=== PATIENT | male | born 1990 | race Two or more races ===

== ENCOUNTER 2016-07-03 21:20 | Emergency (ER) | payer BC, MEDICAID, OTHER ==
[~2016-07-03] VITALS: Ht 177.8 cm; Wt 97.8 kg
[2016-07-03 21:21] VITALS: BP 199/81
[2016-07-03] MEDS ORDERED: DIPH,PERTUSS(ACELL),TET VAC/PF 0.5 ML IM-VACC ONE ×2 (23:04→23:30)
[2016-07-03] MEDS ORDERED: LIDOCAINE 1%-EPI 1:100K, 50ML ONE (23:06)
[2016-07-03] MEDS ORDERED: LIDOCAINE 1%, 20ML ONE (23:10)
[2016-07-03] MEDS ORDERED: LIDOCAINE 1%, 20ML SQ ONE (23:30)
[2016-07-04] MEDS ORDERED: BACITRACIN ZINC OINT 500U/GM, 0.9 GM ONE (00:25)
== END 2016-07-04 00:47 | disposition home or self-care (01) ==
LOC: ED 07-04 00:41
DX: S61.213A Laceration without foreign body of left middle finger without damage to nail, initial encounter (principal); X58.XXXA Exposure to other specified factors, initial encounter; Y93.89 Activity, other specified; Y99.8 Other external cause status; Y92.009 Unspecified place in unspecified non-institutional (private) residence as the place of occurrence of the external cause
CPT/HCPCS: 12002; 90471; 90715

== ENCOUNTER 2019-05-17 13:40 | Emergency (ER) | payer OTHER ==
[~2019-05-17] VITALS: Ht 177.8 cm; Wt 77.0 kg
[2019-05-17] MEDS ORDERED: ONDANSETRON 2MG/ML, 2ML IVPush ONE (14:00)
[2019-05-17] MEDS ORDERED: MORPHINE SULFATE 4 MG/ML, 1ML IVPush PRN (14:00)
[2019-05-17] MEDS ORDERED: SODIUM CHLORIDE FLUSH 10ML SYR IVF ONE (14:00)
[2019-05-17 15:04] LABS: BASOPHILS % (AUTO) 0 % (0-1); EOSINOPHILS # (AUTO) 0.07 x10^3/uL (0-0.4); EOSINOPHILS % (AUTO) 1 % (1-7); LYMPHOCYTES # (AUTO) 0.82 x10^3/uL (1-3.4); LYMPHOCYTES % (AUTO) 8 % (22-44); MD NO; MEAN CORPUSCULAR HEMOGLOBIN 32.4 pg (27.5-34.5); MEAN CORPUSCULAR HGB CONC 33.4 g/dL (33.2-36.2); MEAN PLATELET VOLUME 8.4 fL (7.4-10.4); MONOCYTES # (AUTO) 0.38 x10^3/uL (0.2-0.8); MONOCYTES % (AUTO) 3 % (2-9); NEUTROPHILS # (AUTO) 9.71 x10^3/uL (1.8-6.8); NEUTROPHILS % (AUTO) 88 % (42-75); PLATELET COUNT 211 x10^3/uL (130-400); RED BLOOD COUNT 4.54 x10^6/uL (4.38-5.82); RED CELL DISTRIBUTION WIDTH 13.5 % (9.4-14.8)
[2019-05-17 15:12] LABS: ALANINE AMINOTRANSFERASE 24 U/L (12-78); ANION GAP 4 mmol/L (5-15); CALCIUM 9.2 mg/dL (8.5-10.1); CHLORIDE 105 mmol/L (98-107)
[2019-05-17 15:15] LABS: ALKALINE PHOSPHATASE 67 U/L (45-117); BILIRUBIN,TOTAL 0.7 mg/dL (0.2-1.0); CREATININE 1.05 mg/dL (0.7-1.3); TOTAL PROTEIN 7.8 g/dL (6.4-8.2)
--- NOTE | 2019-05-17 16:32 | NUR ---
PIV PLACED FOR CT SCAN PATIENT THEN MEDICATED PER EMAR REPORTS PAIN IMPROVED BUT STILL A 6/10 (PRE-MEDICATION) VSS ON NIBP/POX UPDATED ON ESTIMATED POC
[2019-05-17] MEDS ORDERED: ONDANSETRON 2MG/ML, 2ML ONE (16:46)
[2019-05-17] MEDS ORDERED: MORPHINE SULFATE 4 MG/ML, 1ML ONE (16:47)
--- NOTE | 2019-05-17 16:53 | NUR ---
MEDICATED PER EMAR
--- NOTE | 2019-05-17 17:30 | NUR ---
To ct scan. abd pain improved to 2/10
[2019-05-17] MEDS ORDERED: OMNIPAQUE 350 MG/ML, 100ML BOTTLE ONE (17:48)
[2019-05-17 19:08] VITALS: BP 124/64
== END 2019-05-17 19:10 | disposition home or self-care (01) ==
LOC: ED 18:40
DX: R10.84 Generalized abdominal pain (principal); R11.2 Nausea with vomiting, unspecified
CPT/HCPCS: 36415; 74177; 76700; 80053; 83690; 85025; 96374; 96375; 99285; J2270; J2405; Q9967